=== PATIENT | male | born 1995 | race Caucasian/White ===

== ENCOUNTER 2019-09-29 09:51 | Inpatient (IN) | payer OTHER ==
[~2019-09-29] VITALS: Ht 182.9 cm; Wt 86.4 kg
[2019-09-29] MEDS ORDERED: LAMO100 PO ×2 (09:58)
[2019-09-29] MEDS ORDERED: ACETAMINOPHEN 325 MG TABLET PO PRN ×2 (10:30→18:00)
[2019-09-29] MEDS ORDERED: 0.9% SODIUM CHLORIDE 10 ML SYRINGE IVP PRN (10:30)
[2019-09-29] MEDS ORDERED: ONDANSETRON HCL 4 MG/2 ML VIAL IVP PRN ×2 (10:30→18:00)
[2019-09-29 10:46] LABS: BASOPHILS % (AUTO) 0.3 % (0.0-2.0); EOSINOPHILS % (AUTO) 0.6 % (1.0-6.0); HEMATOCRIT 43.8 % (41-53); HEMOGLOBIN 14.9 g/dL (13.5-17.5); LYMPHOCYTES # (AUTO) 1.1 K/uL (1.0-4.8); LYMPHOCYTES % (AUTO) 15.8 % (22.0-44.0); MEAN CORPUSCULAR HEMOGLOBIN 29.9 pg (26.0-34.0); MEAN CORPUSCULAR VOLUME 88 fL (80-100); MONOCYTES # (AUTO) 0.4 K/uL (0.1-1.0); MONOCYTES % (AUTO) 5.3 % (2.0-9.0); NEUTROPHILS # (AUTO) 5.6 K/uL (1.8-7.7); PLATELET COUNT (AUTO) 238 K/uL (150-450); RED BLOOD CELL COUNT(AUTO) 4.98 MIL/uL (4.50-5.90)
[2019-09-29 10:56] LABS: ANION GAP 9 mmol/L (8-16); CALCIUM, TOTAL 9.5 mg/dL (8.8-10.5); CARBON DIOXIDE 29 mmol/L (22-29); CHLORIDE 104 mmol/L (98-107); CREATININE 1.02 mg/dL (0.60-1.30); GLOMERULAR FILTR. RATE CALC > 60 mL/min (>60); GLUCOSE,RANDOM 88 mg/dL (70-110); POTASSIUM 4.3 mmol/L (3.5-5.1); SODIUM SERUM 142 mmol/L (136-145); UREA NITROGEN, BLOOD 9 mg/dL (7-18)
[2019-09-29 11:03] LABS: ALANINE AMINOTRANSFERASE 32 U/L (12-78); ALBUMIN 4.3 g/dL (3.4-5.0); ALKALINE PHOSPHATASE 87 U/L (46-116); ASPARTATE AMINOTRANSFERASE 13 U/L (15-37); BILIRUBIN,TOTAL 1.1 mg/dL (0.1-1.0); TOTAL PROTEIN, SERUM 8.3 g/dL (6.4-8.2)
[2019-09-29 11:51] VITALS: BP 122/72
[2019-09-29 15:50] VITALS: BP 122/62
[2019-09-29] MEDS ORDERED: BISACODYL 10 MG RECTAL RECTAL SUPPOSITORY PR PRN (18:00)
[2019-09-29] MEDS ORDERED: ALBUTEROL SULFATE 2.5 MG/0.5 ML NEB SOLUTION NEB PRN (18:00)
[2019-09-29] MEDS ORDERED: MAGNESIUM HYDROXIDE SUSPENSION 30 ML UDCUP PO PRN (18:00)
[2019-09-29] MEDS ORDERED: IPRATROPIUM BROMIDE 0.5 MG/2.5 ML NEB SOLUTION NEB PRN (18:00)
[2019-09-29] MEDS ORDERED: ZOLPIDEM TARTRATE 5 MG TABLET PO PRN (18:00)
[2019-09-29 20:10] VITALS: BP 124/66
[2019-09-29] MEDS: DOCUSATE SODIUM 100 MG CAPSULE PO SCH (20:38)
[2019-09-29] MEDS: LamoTRIgine 100 MG TABLET PO SCH (20:39)
[2019-09-29] MEDS: HEPARIN SODIUM,PORCINE 5,000 UNITS/ML VIAL SQ SCH (23:41)
[2019-09-29 23:46] VITALS: BP 114/63
[2019-09-30 05:03] VITALS: BP 119/72
[2019-09-30 07:34] VITALS: BP 127/65
[2019-09-30] MEDS: LamoTRIgine 100 MG TABLET PO SCH ×2 (08:22→20:04)
[2019-09-30] MEDS: HEPARIN SODIUM,PORCINE 5,000 UNITS/ML VIAL SQ SCH ×2 (08:22→16:49)
[2019-09-30] MEDS: DOCUSATE SODIUM 100 MG CAPSULE PO SCH ×2 (08:22→20:05)
[2019-09-30 15:07] VITALS: BP 120/70
[2019-09-30 20:00] VITALS: BP 124/69
[2019-10-01] MEDS: HEPARIN SODIUM,PORCINE 5,000 UNITS/ML VIAL SQ SCH ×4 (00:04→23:20)
[2019-10-01 04:00] VITALS: BP 133/79
[2019-10-01 07:40] VITALS: BP 117/72
[2019-10-01] MEDS: LamoTRIgine 100 MG TABLET PO SCH ×2 (08:17→20:21)
[2019-10-01] MEDS: DOCUSATE SODIUM 100 MG CAPSULE PO SCH ×2 (08:17→20:25)
[2019-10-01 16:07] VITALS: BP 130/68
[2019-10-01 19:28] VITALS: BP 131/68
[2019-10-02 07:51] VITALS: BP 124/70
[2019-10-02] MEDS: LamoTRIgine 100 MG TABLET PO SCH (08:36)
[2019-10-02] MEDS: HEPARIN SODIUM,PORCINE 5,000 UNITS/ML VIAL SQ SCH (08:36)
[2019-10-02] MEDS: DOCUSATE SODIUM 100 MG CAPSULE PO SCH (08:36)
== END 2019-10-02 11:08 | DRG 101 ==
LOC: EMS 09:55 → 6S 10:32
PROVIDERS: ADMIT Internal Medicine; ATTEND Hospitalist
DX: G40.A09 Absence epileptic syndrome, not intractable, without status epilepticus (principal); F17.210 Nicotine dependence, cigarettes, uncomplicated; Z91.19 Patient's noncompliance with other medical treatment and regimen; Z91.14 Patient's other noncompliance with medication regimen
CPT/HCPCS: 80175; J1644